=== PATIENT | female | born 1995 | race Caucasian/White ===

== ENCOUNTER 2017-06-24 21:52 | Emergency (ER) | payer OTHER ==
[~2017-06-24] VITALS: Ht 154.9 cm; Wt 77.3 kg
[2017-06-24] MEDS ORDERED: ZYRTEC 10MG10 MG PO (22:01)
[2017-06-25 01:03] VITALS: TEMP 99.3
[2017-06-25] MEDS ORDERED: TAMIFLU 75MG75 MG PO (01:08)
[2017-06-25] MEDS ORDERED: PROAIR HFA0.09 MG/AC IH (01:31)
[2017-06-25 01:35] VITALS: BP 104/55; PULSE 100
== END 2017-06-25 01:35 | disposition home or self-care (01) ==
LOC: COL.ER 21:52
DX: J11.1 Influenza due to unidentified influenza virus with other respiratory manifestations (principal); J45.909 Unspecified asthma, uncomplicated; Z88.8 Allergy status to other drugs, medicaments and biological substances

== ENCOUNTER 2020-04-06 21:17 | Inpatient (IN) | payer OTHER ==
[~2020-04-06] VITALS: Ht 154.9 cm; Wt 85.9 kg
[~2020-04-06 21:17] MED LIST: PROAIR HFA0.09 MG/AC IH; TAMIFLU 75MG75 MG PO; ZYRTEC 10MG10 MG PO
[2020-04-06] MEDS ORDERED: SPRINTEC 35 MCG1 TAB PO (21:27)
[2020-04-06] MEDS ORDERED: ATARAX 25MG25 MG/TAB PO (21:28)
[2020-04-06] MEDS ORDERED: WELLBUTRIN SR150 M1 PO (21:28)
[2020-04-06 22:06] LABS: ARTERIAL BLD GAS O2 SATURATION 93.5 % (92-100); ARTERIAL BLD GAS TCO2 CT 22.6; ARTERIAL BLOOD GAS BASE EXCESS -3.3 (-2-2); ARTERIAL BLOOD GAS HCO3 21.4 meq/L (22-26); ARTERIAL BLOOD GAS PCO2 37.6 mmHg (35-45); ARTERIAL BLOOD GAS PO2 66.9 mmHg (80-100); ARTERIAL BLOOD GAS pH 7.37 (7.35-7.45)
[2020-04-06 22:20] LABS: ALANINE AMINOTRANSFERASE 19 U/L (4-34); ALBUMIN 4.6 gm/dL (3.5-5.0); ALKALINE PHOSPHATASE 65 U/L (50-136); ANION GAP 10 mmol/L (7-16); AST,SGOT 24 U/L (15-37); BILIRUBIN,TOTAL 0.5 mg/dL (0.0-1.0); BLOOD UREA NITROGEN 11 mg/dL (7-17); CALCIUM 9.3 mg/dL (8.4-10.2); CARBON DIOXIDE 25 mmol/L (22-30); CHLORIDE 98 mmol/L (98-107); CREATININE, serum 0.82 (0.52-1.25); GLUCOSE 126 mg/dL (74-106); HEMATOCRIT 43.8 % (37.0-47.0); HEMOGLOBIN 14.4 g/dl (12.5-16.0); LIPASE 21 U/L (23-300); MEAN CELL VOLUME 90 fl (80.0-100.0); MEAN CORPUSCULAR HEMOGLOBIN 30 pg (27.0-31.0); MEAN CORPUSCULAR HGB CONC 33 g/dl (33.0-37.0); MEAN PLATELET VOLUME 9.6 fl (7.4-10.4); PLATELET COUNT 337 K/mm3 (130-400); RED BLOOD COUNT 4.86 M/mm3 (4.10-5.30); REDCELL DISTRIBUTION WIDTH-CV 12.8 % (11.5-14.5); SODIUM 134 mmol/L (137-145); TOTAL PROTEIN 7.9 gm/dL (6.4-8.2)
[2020-04-06 22:31] LABS: TROPONIN-I < 0.012 ng/mL (0.000-0.035)
[2020-04-06 22:53] LABS: BAND 6 % (0-10); EOSINOPHIL 2 % (0-4); LYMPHOCYTE 2 % (20.0-51.0); NEUTROPHILS 88 % (42.0-75.2); PLATELET ESTIMATE NORMAL (NORMAL)
[2020-04-07 03:29] VITALS: BP 130/80; PULSE 100; TEMP 96
--- NOTE | 2020-04-07 04:57 | NUR ---
Pt arrived to medical unit room 304 from ED at 0330. Oriented to room. Admission assessments and med rec completed. Heart RRR, tachy when out of bed. Lungs diminished to auscultation with expiratory wheezes heard over left upper lobe. Pt reports pain 4/10 to upper back, worse with coughing and mild pain in left upper chest. A&Ox4. SOA and labored breathing noted at this time after pt was up to restroom. Breathing slowed after several minutes at rest. IV fluids started at 75 ml/hr. AM labs drawn. Call light in reach.
[2020-04-07 05:32] LABS: HEMATOCRIT 42.1 % (37.0-47.0); HEMOGLOBIN 14.2 g/dl (12.5-16.0); MEAN CELL VOLUME 89 fl (80.0-100.0); MEAN CORPUSCULAR HEMOGLOBIN 30 pg (27.0-31.0); MEAN CORPUSCULAR HGB CONC 34 g/dl (33.0-37.0); MEAN PLATELET VOLUME 10.1 fl (7.4-10.4); PLATELET COUNT 336 K/mm3 (130-400); RED BLOOD COUNT 4.74 M/mm3 (4.10-5.30); REDCELL DISTRIBUTION WIDTH-CV 12.8 % (11.5-14.5)
[2020-04-07 05:45] LABS: CALCIUM 9.4 mg/dL (8.4-10.2); CREATININE, serum 0.8 (0.52-1.25); POTASSIUM 3.8 mmol/L (3.4-5.0)
[2020-04-07 06:16] LABS: BAND 9 % (0-10); NEUTROPHILS 91 % (42.0-75.2); PLATELET ESTIMATE NORMAL (NORMAL)
--- NOTE | 2020-04-07 06:37 | NUR ---
Resting in bed at this time. Reports increased SOA when up to bathroom. Currently on 2 L O2 NC. Zosyn infusing at 25 ml/hr.
[2020-04-07 09:10] VITALS: BP 131/75; PULSE 114; TEMP 96.1
--- NOTE | 2020-04-07 09:58 | NUR ---
Assessment complete. Patient resting in bed on entry, states that she feels alright. Patient becomes short of breath with movement and exersion but is satting well on O2. Patient denies pain. IV site is CD&I, IVF continue to infuse. No other needs were expressed at this time. Call light is in reach.
[2020-04-07 13:27] VITALS: BP 128/67; PULSE 98; TEMP 97.7
[2020-04-07 16:39] VITALS: BP 130/75; PULSE 113
--- NOTE | 2020-04-07 16:51 | NUR ---
Assembly Line Leader contacted patient by phone to complete initial intake. Patient lives alone in [place] and sees Dr. Colette Nelson for primary care. Patient is employed at [employer]. Patient obtains medications at [facility] in [place] with no difficulties and uses a nebulizer at home. Patient is independent with ADLS. Patient does not have Advance Directives. Patient is not but has a boyfriend, Elia (ph#[phone]). Patient states her father is and her mother Connie (ph#[phone]) lives in [place]. Patient states she and her mother are not close. Patient also lists her uncle Angel (ph#[phone]) as another support. Patient plans to return home upon discharge with her boyfriend providing her with transportation.
--- NOTE | 2020-04-07 17:46 | NUR ---
Patient has had a good shift. SHe gets tachy while moving around in the room and while eating. Parameters were adjusted as she is asymptomatic when this happens and Dr. Fair said this was fine. no pain or discomfort. IV remains running. No other needs. Call light is in reach.
--- NOTE | 2020-04-07 18:48 | NUR ---
Report received from Nel PIERRE. Pt resting in bed, on 1 L O2 NC. Denies needs at this time. Will continue to monitor.
[2020-04-07 19:28] VITALS: BP 118/52; PULSE 113; TEMP 98.6
--- NOTE | 2020-04-07 21:00 | NUR ---
Shift assessment complete. Pt currently on 1L O2 NC. Reports mild SOA with exertion, improved since yesterday. Inspiratory wheezes auscultated all [place], less noticeable than last night. Pt reports improvement in chest tightness and denies back pain at this time. Heart rate remains tachy, 110s at rest with increased to 120-130 with exertion, rhythm regular. A&Ox4. Reports burning feeling in upper chest and throat, stating "it feels like heartburn." PARADISE Joseph called for Tums order. Urine specimen collected and sent to lab. Denies other needs at this time.
[2020-04-08] VITALS (7 sets, daily range): BP systolic 112–130; BP diastolic 62–87; PULSE 83–109; TEMP 97.1–98.4
--- NOTE | 2020-04-08 00:31 | NUR ---
Pt called stating she was having difficulty breathing. Pt reports increased coughing causing difficulty catching her breath. This RN notified PARADISE Joseph of situation, cough drops and chito pedro ordered PRN. Breathing treatment administered by RT.
[2020-04-08 06:24] LABS: BASO % 0.1 % (0.0-2.0); EOS % 0.1 % (0-4.0); GRAN # 17.8 (1.4-6.5); GRAN % 85.9 % (42.2-75.2); HEMATOCRIT 37.3 % (37.0-47.0); HEMOGLOBIN 12.3 g/dl (12.5-16.0); LYMPH # 1.8 (1.2-3.4); LYMPH % 8.5 % (20.0-51.0); MEAN CELL VOLUME 92 fl (80.0-100.0); MEAN CORPUSCULAR HEMOGLOBIN 30 pg (27.0-31.0); MEAN CORPUSCULAR HGB CONC 33 g/dl (33.0-37.0); MEAN PLATELET VOLUME 10.4 fl (7.4-10.4); MONO % 4.8 % (1.7-9.3); PLATELET COUNT 307 K/mm3 (130-400); RED BLOOD COUNT 4.04 M/mm3 (4.10-5.30); REDCELL DISTRIBUTION WIDTH-CV 13.3 % (11.5-14.5)
[2020-04-08 06:43] LABS: CALCIUM 8.5 mg/dL (8.4-10.2); CREATININE, serum 0.75 (0.52-1.25); POTASSIUM 4.1 mmol/L (3.4-5.0)
--- NOTE | 2020-04-08 07:48 | NUR ---
Pt asleep at this time. Was having some anxiety over night, relieved by Ativan. Requests psych consult outpatient. Passed on to day shift IGNACIO Neumann.
--- NOTE | 2020-04-08 09:35 | NUR ---
Assessment complete. Patient laying in bed on entry but easily aroused to me walking in. States she feels prettty tired but does notice an improvement in her breathing.Lung sounds have greatly improved since yesterday. No complaints of pain or discomfort. Cough drop was provided to help with her cough. IV site remains intact. Patient requests to shower mid morning. No other needs. Call light is in reach.
--- NOTE | 2020-04-08 18:24 | NUR ---
Patient has had a good day. Seems to be in better spirits since learning of her negative covid result and leaviung isolation. She is aware of her POC. No other needs. Call light is in reach.
--- NOTE | 2020-04-08 19:25 | NUR ---
Report received, assumed care for night custodian. Called to nurses station stating she was couldnt stop coughing and chest felt tight. Assessment complete. VS stable-O2 sat 96% on room air. Noted to have insp/exp wheezes to left lung field and exp wheezes to right lung field. Discussed PRN Tessalon Perles/cough drops as well as breathing TX. Meds given at this time. Resp notified of need for breathing TX-at bedside now. Will reassess post neb.
--- NOTE | 2020-04-08 20:20 | NUR ---
Reassessed at this time post nebulizer-states she feels less short of air but and coughing has decreased. Patient is very anxious at this [id number] she just wants to go home due to being all alone. Discussed recent deaths of family members as well as being sick and losing jobs over it. After long discussion patient is calmer and denies concerns. States she will try to get some rest.
--- NOTE | 2020-04-08 20:45 | NUR ---
Spoke with hospitalist PARADISE Qureshi about c/o "congestion and allergy like" symptoms. PT states she usually takes zyrtec and has been off of it for a few days now. Is very congested but has also been crying. Very emotional because no one can visit her. States she plans on face timing her SO and is afraid if she takes the ativan she wont wake for his call. Agreed to take some ativan now and staff to wake her at 0200 if she is asleep as to not miss the call. Zyrtec and guafinessin given as ordered. Discussed chest x ray as well which seemed to ease her mind more. Denies any other questions/concerns. Call light in reach. Will monitor.
--- NOTE | 2020-04-09 02:20 | NUR ---
Awake for face time call. C/O cough-tessalon perles/Lamar given per dr order. Denies pain/nausea/shortness of breath. States "I actually slept good after the ativan." Denies current needs. Call light in reach. Will monitor.
[2020-04-09 03:32] VITALS: BP 124/73; PULSE 87; TEMP 97.3
--- NOTE | 2020-04-09 05:33 | NUR ---
Rested better later this shift. States breathing tx are helping with the tightness. Guafinessin has started to loosen secretions. Denied nausea/pain. Vitals remained stable. O2 sat WNL on room air. Denies needs. Call light in reach. Will monitor.
[2020-04-09 06:30] LABS: BASO % 0.3 % (0.0-2.0); EOS # 0.2 (0.0-0.7); EOS % 1.5 % (0-4.0); GRAN # 8.9 (1.4-6.5); GRAN % 70.5 % (42.2-75.2); HEMATOCRIT 37.1 % (37.0-47.0); HEMOGLOBIN 12.1 g/dl (12.5-16.0); LYMPH # 2.6 (1.2-3.4); LYMPH % 20.8 % (20.0-51.0); MEAN CELL VOLUME 91 fl (80.0-100.0); MEAN CORPUSCULAR HEMOGLOBIN 30 pg (27.0-31.0); MEAN CORPUSCULAR HGB CONC 33 g/dl (33.0-37.0); MEAN PLATELET VOLUME 9.9 fl (7.4-10.4); MONO # 0.8 (0.1-0.6); MONO % 6.6 % (1.7-9.3); PLATELET COUNT 309 K/mm3 (130-400); RED BLOOD COUNT 4.07 M/mm3 (4.10-5.30); REDCELL DISTRIBUTION WIDTH-CV 13.1 % (11.5-14.5)
[2020-04-09 06:41] LABS: CALCIUM 8.2 mg/dL (8.4-10.2); CREATININE, serum 0.7 (0.52-1.25); POTASSIUM 3.4 mmol/L (3.4-5.0)
--- NOTE | 2020-04-09 07:00 | NUR ---
Pt report rcvd from IGNACIO Chaney. Pt resting in bed, and declines needs at this time. Pt will be managed by Student Nurse, Nelsy. No further concerns.
[2020-04-09 08:47] VITALS: BP 132/63; PULSE 90; TEMP 97.5
[2020-04-09] MEDS ORDERED: ZITHROMAX 250M250 MG PO (09:26)
[2020-04-09] MEDS ORDERED: TESSALON P100 MG/CAP PO (09:27)
[2020-04-09] MEDS ORDERED: PREDNISONE10 MG PO (09:28)
--- NOTE | 2020-04-09 12:15 | NUR ---
Pt discharged home, Student nurse Nelsy gave discharge instructions with this RNs supervision. Pt ambulated to the ER door and left with family.
--- NOTE | 2020-04-09 14:02 | NUR ---
Bridge Maintenance Worker attended clinical rounds with the team and patient to discharge home today. No needs identified at this time.
== END 2020-04-09 12:15 | disposition home or self-care (01) | DRG 202 ==
LOC: COL.ER 21:17 → PEDS 04-07 00:25 → MEDICAL 04-08 17:01
PROVIDERS: Emergency Medicine; Physician Assistant; ADMIT Student in an Organized Health Care Education/Training Program
DX: J45.902 Unspecified asthma with status asthmaticus (principal); J96.01 Acute respiratory failure with hypoxia; E87.1 Hypo-osmolality and hyponatremia; R65.10 Systemic inflammatory response syndrome (SIRS) of non-infectious origin without acute organ dysfunction; F41.9 Anxiety disorder, unspecified; F32.9 Major depressive disorder, single episode, unspecified; J98.2 Interstitial emphysema; R00.0 Tachycardia, unspecified
CPT/HCPCS: 99223-AI; 99232-AI; 99239; J1100; J1170; J1650; J1885; J2543; J2930; J7030; J7512; Q9967

== ENCOUNTER 2020-06-26 13:57 | Emergency (ER) | payer SELFPAY ==
[~2020-06-26] VITALS: Ht 154.9 cm; Wt 85.9 kg
[~2020-06-26 13:57] MED LIST changes: +ATARAX 25MG25 MG/TAB PO; +PREDNISONE10 MG PO; +SPRINTEC 35 MCG1 TAB PO; +TESSALON P100 MG/CAP PO; +WELLBUTRIN SR150 M1 PO; +ZITHROMAX 250M250 MG PO
[2020-06-26 14:04] VITALS: TEMP 97.8
[2020-06-26 14:18] LABS: COLLECTION METHOD CLEAN CATCH
[2020-06-26 14:26] LABS: MUCOUS Present /lpf; PH 6 (5-8); URINE APPEARANCE Clear; URINE BACTERIA Rare /hpf; URINE BILIRUBIN Negative (NEGATIVE); URINE BLOOD 1+ (NEGATIVE); URINE COLOR Yellow; URINE GLUCOSE Negative (NEGATIVE); URINE KETONE Trace (NEGATIVE); URINE LEUKOCYTE ESTERASE Negative (NEGATIVE); URINE NITRATE Negative (NEGATIVE); URINE PROTEIN(semi-quant) Negative (NEGATIVE); URINE UROBILINOGEN Negative (NEGATIVE)
[2020-06-26 14:35] LABS: BASO % 0.6 % (0.0-2.0); EOS # 0.4 (0.0-0.7); EOS % 5.4 % (0-4.0); GRAN # 4.1 (1.4-6.5); GRAN % 56.6 % (42.2-75.2); HEMATOCRIT 39.8 % (37.0-47.0); HEMOGLOBIN 13.5 g/dl (12.5-16.0); LYMPH # 2.2 (1.2-3.4); MEAN CELL VOLUME 88 fl (80.0-100.0); MEAN CORPUSCULAR HEMOGLOBIN 30 pg (27.0-31.0); MEAN CORPUSCULAR HGB CONC 34 g/dl (33.0-37.0); MEAN PLATELET VOLUME 9.5 fl (7.4-10.4); MONO # 0.5 (0.1-0.6); MONO % 6.3 % (1.7-9.3); PLATELET COUNT 375 K/mm3 (130-400); RED BLOOD COUNT 4.52 M/mm3 (4.10-5.30); REDCELL DISTRIBUTION WIDTH-CV 12.6 % (11.5-14.5)
[2020-06-26 14:47] LABS: ALBUMIN 4.3 gm/dL (3.5-5.0); BILIRUBIN,TOTAL 0.5 mg/dL (0.0-1.0); C-REACTIVE PROTEIN 2.3 mg/dL (0.0-0.9); CALCIUM 9.3 mg/dL (8.4-10.2); CREATININE, serum 0.81 (0.52-1.25); TOTAL PROTEIN 7.4 gm/dL (6.4-8.2)
[2020-06-26] MEDS ORDERED: NORCO 325 MG-51 TAB PO (15:52)
[2020-06-26 16:30] VITALS: BP 118/71; PULSE 67
== END 2020-06-26 16:42 | disposition home or self-care (01) ==
LOC: COL.ER 13:57
PROVIDERS: Family Medicine
DX: R10.11 Right upper quadrant pain (principal); J45.909 Unspecified asthma, uncomplicated; F41.9 Anxiety disorder, unspecified; Z32.02 Encounter for pregnancy test, result negative; Z91.018 Allergy to other foods; Z79.51 Long term (current) use of inhaled steroids
CPT/HCPCS: J2270; J2405; J7120; Q9967

== ENCOUNTER 2024-02-23 03:00 | Emergency (ER) | payer BC ==
[~2024-02-23] VITALS: Ht 154.9 cm; Wt 127.3 kg
[~2024-02-23 03:00] MED LIST changes: +NORCO 325 MG-51 TAB PO; +PREDNISONE20 MG PO
[2024-02-23 03:04] VITALS: TEMP 98.5
[2024-02-23] MEDS ORDERED: dexAMETHasone 10 MG/ML VIAL IV ONE (03:30)
[2024-02-23] MEDS ORDERED: Albuterol/Ipratropium 3 MG-0.5 MG/3 ML Neb Soln IH SCH (03:30)
[2024-02-23 03:55] LABS: BASO # 0.1 K/mm3 (0.0-0.2); BASO % 0.6 % (0.0-2.0); EOS # 1.1 K/mm3 (0.0-0.7); EOS % 9.6 % (0.0-4.0); GRAN # 5.9 K/mm3 (1.4-6.5); GRAN % 51.4 % (42.2-75.2); HEMATOCRIT 40.4 % (37.0-47.0); HEMOGLOBIN 13.8 g/dl (12.5-16.0); LYMPH # 3.9 K/mm3 (1.2-3.4); LYMPH % 33.3 % (20.0-51.0); MEAN CELL VOLUME 89 fl (80.0-100.0); MEAN CORPUSCULAR HEMOGLOBIN 30 pg (27-31); MEAN CORPUSCULAR HGB CONC 34 g/dl (33.0-37.0); MEAN PLATELET VOLUME 9.2 fl (7.4-10.4); MONO # 0.6 K/mm3 (0.1-0.6); MONO % 4.8 % (1.7-9.3); PLATELET COUNT 330 K/mm3 (130-400); RED BLOOD COUNT 4.54 M/mm3 (4.10-5.30); REDCELL DISTRIBUTION WIDTH-CV 13.4 % (11.5-14.5)
[2024-02-23 04:00] LABS: INR 0.9 (0.8-3.0); PROTHROMBIN TIME 9.9 SECONDS (9.7-12.8)
[2024-02-23 04:02] LABS: PARTIAL THROMBOPLASTIN TIME 28.3 SECONDS (26.0-37.0)
[2024-02-23 04:13] LABS: ALANINE AMINOTRANSFERASE 22 U/L (0-55); ALBUMIN 3.5 g/dL (3.5-5.0); ALKALINE PHOSPHATASE 55 U/L (40-150); ANION GAP 11 mmol/L (7-16); AST,SGOT 17 U/L (5-34); BILIRUBIN,TOTAL 0.4 mg/dL (0.2-1.2); BLOOD UREA NITROGEN 18 mg/dL (7-19); CALCIUM 8.9 mg/dL (8.4-10.2); CHLORIDE 107 mEq/L (98-107); CREATININE, serum 0.91 mg/dL (0.57-1.11); GLUCOSE 105 mg/dL (70-99); POTASSIUM 3.6 mEq/L (3.5-4.5); SODIUM 139 mEq/L (136-145); TOTAL PROTEIN 6.7 g/dl (6.2-8.1)
[2024-02-23 04:19] LABS: TROPONIN-I < 0.010 ng/mL (0.00-0.033)
[2024-02-23 04:50] VITALS: BP 132/83; PULSE 85
== END 2024-02-23 04:50 | disposition home or self-care (01) ==
LOC: COL.ER 03:00
PROVIDERS: Emergency Medicine
DX: J45.901 Unspecified asthma with (acute) exacerbation (principal)
CPT/HCPCS: J1100